=== PATIENT | female | born 1990 | race Two or more races ===

== ENCOUNTER 2021-02-07 10:38 | Outpatient (CLI) | payer OTHER | END 2021-02-07 11:38 | disposition home or self-care (01) | LOC: PRENATAL 10:38 | PROVIDERS: ATTEND Obstetrics & Gynecology Maternal & Fetal Medicine | DX: O35.0XX1 Maternal care for (suspected) central nervous system malformation in fetus, fetus 1 (principal); O35.3XX1 Maternal care for (suspected) damage to fetus from viral disease in mother, fetus 1; O98.512 Other viral diseases complicating pregnancy, second trimester; Z36.89 Encounter for other specified antenatal screening; Z3A.24 24 weeks gestation of pregnancy ==

== ENCOUNTER 2021-03-27 13:34 | Outpatient (CLI) | payer OTHER | END 2021-03-27 14:30 | disposition home or self-care (01) | LOC: PRENATAL 13:34 | PROVIDERS: ATTEND Obstetrics & Gynecology Maternal & Fetal Medicine | DX: O26.843 Uterine size-date discrepancy, third trimester (principal); O26.613 Liver and biliary tract disorders in pregnancy, third trimester; O35.0XX1 Maternal care for (suspected) central nervous system malformation in fetus, fetus 1; Z36.89 Encounter for other specified antenatal screening; Z3A.32 32 weeks gestation of pregnancy ==

== ENCOUNTER 2021-04-26 11:51 | Outpatient (CLI) | payer OTHER | END 2021-04-26 13:05 | disposition home or self-care (01) | LOC: PRENATAL 11:51 | PROVIDERS: ATTEND Obstetrics & Gynecology Maternal & Fetal Medicine | DX: O26.843 Uterine size-date discrepancy, third trimester (principal); O26.613 Liver and biliary tract disorders in pregnancy, third trimester; O35.0XX1 Maternal care for (suspected) central nervous system malformation in fetus, fetus 1; Z36.89 Encounter for other specified antenatal screening; Z3A.39 39 weeks gestation of pregnancy ==

== ENCOUNTER 2021-05-09 07:15 | Inpatient (IN) | payer OTHER ==
[~2021-05-09] VITALS: Ht 162.6 cm; Wt 82.1 kg
[2021-05-09] MEDS ORDERED: PRENATAL TABLE1 EAC1 (08:57)
[2021-05-09] MEDS ORDERED: URSODIOL500 MG PO (09:02)
== END 2021-05-12 17:27 | disposition home or self-care (01) | DRG 805 ==
LOC: LDR 07:15 → OB/GYN 07:15
PROVIDERS: ADMIT Obstetrics & Gynecology; ATTEND Obstetrics & Gynecology
PROC: 10E0XZZ Delivery of Products of Conception, External Approach (ICD-10-PCS; principal; 2021-05-09)
PROC: 0W8NXZZ Division of Female Perineum, External Approach (ICD-10-PCS; 2021-05-09)
PROC: 4A1HXFZ Monitoring of Products of Conception, Cardiac Rhythm, External Approach (ICD-10-PCS; 2021-05-09)
DX: O26.62 Liver and biliary tract disorders in childbirth (principal); K83.1 Obstruction of bile duct; Z37.0 Single live birth; O99.824 Streptococcus B carrier state complicating childbirth; Z3A.36 36 weeks gestation of pregnancy